=== PATIENT | male | born 1980 | race American Indian/Alaskan Native ===

== ENCOUNTER 2017-06-23 20:14 | Emergency (ER) | payer SELFPAY ==
[2017-06-23] MEDS ORDERED: TYLENOL PO ONE (20:30)
[2017-06-23] MEDS ORDERED: TYLENOL ONE (20:33)
[2017-06-23] MEDS ORDERED: NACL 0.9% 1000 ML 1,000 ML IV ONE (20:36)
[2017-06-23 21:15] LABS: Hematocrit 42.7 % (35.5-45.6); Hemoglobin 13.9 gm/dl (11.8-15.2); Mean Corpuscular HGB Conc 33 % (32-34); Mean Corpuscular Volume 79 fl (84-94); Platelet Count 157 K/mm3 (140-440); Red Cell Distribution Width 14.6 % (13.2-15.2)
[2017-06-23 21:17] LABS: Mean Corpuscular Hemoglobin 26 pg (28-32)
[2017-06-23 21:30] LABS: BUN/Creatinine Ratio 11; Blood Urea Nitrogen 11 mg/dL (9-20); Calcium 8.3 mg/dL (8.4-10.2); Hemolysis Index 22
[2017-06-23 22:16] LABS: Total Cells Counted 100
[2017-06-23 22:17] LABS: Band Neutrophils # (Manual) 0.6 K/mm3; Basophils % (Manual) 0 % (0.0-1.8); Eosinophils % (Manual) 0 % (0.0-4.3); Myelocytes # (Manual) 0.1 K/mm3
[2017-06-23 22:19] LABS: Platelet Estimate Consistent w Auto
[2017-06-23] MEDS ORDERED: TORADOL IM ONE (22:57)
[2017-06-23] MEDS ORDERED: TORADOL IV ONE (23:02)
--- NOTE | 2017-06-23 23:16 | Emergency Department Report ---
HPI - General Chief Complaint: Fever Time Seen by Provider: 06/23/17 22:48 - HPI HPI: This is a 37 year-old male presents to the emergency department from home with a complaint of a fever, body aches, a productive sounding cough and some headache and/or pain to the back and head when he coughs. He denies any vision change, slurred speech, chest pain, nausea, vomiting or rash. No recent travel or sick contacts at home. Patient took some TheraFlu for his symptoms without much relief. He checked his temperature today and found to be 105F and decided to come in to be seen. He denies any past medical history. He does not have a primary care physician. ED Past Medical Hx - Past Medical History Previous Medical History?: No - Surgical History Past Surgical History?: No - Social History Smoking Status: Never Smoker Substance Use Type: None - Medications Home Medications: Home Medications Medication Instructions Recorded Confirmed Last Taken Type Oseltamivir [Tamiflu] 75 mg PO BID #10 cap 06/24/17 Unknown Rx guaiFENesin/CODEINE [Robitussin AC] 5 ml PO Q6H PRN #100 oral.liqd 06/24/17 Unknown Rx ED Review of Systems ROS: Stated complaint: FEVER / COLD SX Other details as noted in HPI Comment: All other systems reviewed and negative Constitutional: chills, fever Eyes: denies: eye pain, eye discharge, vision change ENT: denies: ear pain, throat pain Respiratory: cough. denies: shortness of breath Cardiovascular: denies: chest pain, edema Gastrointestinal: denies: abdominal pain, nausea, diarrhea Genitourinary: denies: urgency, dysuria Musculoskeletal: back pain, myalgia Skin: denies: rash, lesions Neurological: denies: weakness, numbness Physical Exam - Physical Exam Vital Signs: Vital Signs 06/23/17 06/23/17 20:21 22:15 Temperature 103 F H 101 F H Pulse Rate 135 H 109 H Respiratory 20 20 Rate Blood Pressure 144/97 O2 Sat by Pulse 97 98 Oximetry Physical Exam: GENERAL: The patient is well-developed well-nourished. HENT: Normocephalic. Atraumatic. Patient has moist mucous membranes. EYES: Extraocular motions are intact. Pupils equal reactive to light bilaterally. NECK: Supple. Trachea is midline. CHEST/LUNGS: Clear to auscultation. Occasional productive sounding cough heard during examination. There is no respiratory distress noted. HEART/CARDIOVASCULAR: Regular. There is no tachycardia. There is no murmur. ABDOMEN: Abdomen is soft, nontender. Patient has normal bowel sounds. There is no abdominal distention. SKIN: Skin is warm and dry. NEURO: The patient is awake, alert, and oriented. The patient is cooperative. The patient has no focal neurologic deficits. The patient has normal speech. MUSCULOSKELETAL: There is no tenderness or deformity. There is no limitation range of motion. There is no evidence of acute injury. ED Course Vital Signs 06/23/17 06/23/17 20:21 22:15 Temperature 103 F H 101 F H Pulse Rate 135 H 109 H Respiratory 20 20 Rate Blood Pressure 144/97 O2 Sat by Pulse 97 98 Oximetry ED Medical Decision Making - Lab Data Result diagrams: 06/23/17 21:00 06/23/17 21:00 - Radiology Data Radiology results: image reviewed interpreted by me: Chest x-ray does not show any acute process. There are no pleural effusions, obvious pneumonia and there is no pneumothorax. - Medical Decision Making Patient presents with fever, cough, headache with cough and body aches. Positive for influenza A. Even Tylenol and Toradol and his fever resolved and heart rate came down to a normal range. Patient is feeling improved. The rest of his labs have been unremarkable. He will take a few days off work. He will go home on some Tamiflu and Robitussin-AC. He'll follow up with a primary care physician. He'll return to the ER with any worsening of symptoms or any acute distress. - Differential Diagnosis influenza, pneumonia, viral syndrome Critical Care Time: No Critical care attestation.: If time is entered above; I have spent that time in minutes in the direct care of this critically ill patient, excluding procedure time. ED Disposition Clinical Impression: Influenza A, Body aches Fever Qualifiers: Fever type: unspecified Qualified Code(s): R50.9 - Fever, unspecified Disposition: DC-01 TO HOME OR SELFCARE Is pt being admited?: No Condition: Stable Instructions: Fever in Adults (ED), Influenza (ED) Additional Instructions: Please follow up with a primary care physician in the next few days. He can use Tylenol every 4 hours and ibuprofen every 6 hours, using weight-based dosing , as needed for fever or discomfort. Increase your oral rehydration. He should not return to work until you are 24 hours without a fever without having to use Tylenol or ibuprofen to obtain that. Return to the emergency Department with any worsening of her symptoms are any acute distress. You have been prescribed a medication that is sedating and therefore should not be taken prior to driving, working, and responsible for children and in no way should be mixed with alcohol of any quantity. Prescriptions: guaiFENesin/CODEINE [Robitussin AC] 5 ml PO Q6H PRN #100 oral.liqd PRN Reason: Cough Oseltamivir [Tamiflu] 75 mg PO BID #10 cap Referrals: LORI ROSE MD [Staff Physician] - 3-5 Days [facility] [Outside] - 3-5 Days Time of Disposition: 01:07
--- NOTE | 2017-06-23 23:23 | XRay Report ---
FINAL REPORT PROCEDURE: Chest. TECHNIQUE: PA and lateral views. HISTORY: Fever. COMPARISON: No prior studies are available for comparison. FINDINGS: The heart and mediastinum appear normal. The lungs are clear and well expanded. There are no pleural effusions. The soft tissues and regional skeleton are unremarkable. IMPRESSION: Normal study.
[2017-06-24 00:54] VITALS: BP 154/88
== END 2017-06-24 01:22 | disposition home or self-care (01) ==
LOC: ED 20:14
DX: J09.X2 Influenza due to identified novel influenza A virus with other respiratory manifestations (principal)
CPT/HCPCS: 36415; 71046; 80048; 85007; 85025; 87400; 96361; 96374; 99284; J1885; J7030